=== PATIENT | male | born 1965 | race Caucasian/White ===

== ENCOUNTER 2017-10-29 13:42 | Emergency (ER) | payer MEDICARE ==
[~2017-10-29] VITALS: Ht 185.4 cm; Wt 90.7 kg
[2017-10-29 13:46] VITALS: Ht 185.4 cm; Wt 90.7 kg
[2017-10-29] MEDS ORDERED: PLAVIX75 MG PO (13:47)
[2017-10-29] MEDS ORDERED: OXYCONTIN15 MG PO (13:48)
[2017-10-29] MEDS ORDERED: fentanyl patch TD (13:50)
[2017-10-29] MEDS ORDERED: ZESTRIL20 MG PO (13:51)
[2017-10-29] MEDS ORDERED: DICLOFENAC SODI50 MG PO (13:51)
[2017-10-29] MEDS ORDERED: STERAPRED 5MG 125 MG PO (13:52)
[2017-10-29] MEDS ORDERED: FLOMAX0.4 MG PO (13:53)
[2017-10-29] MEDS ORDERED: LIPITOR10 MG PO (13:53)
[2017-10-29] MEDS ORDERED: VIBRAMYCIN 100100 MG PO (16:52)
[2017-10-29 17:13] VITALS: BP 114/71
== END 2017-10-29 17:13 | disposition home or self-care (01) ==
LOC: D.ER 13:42
DX: S61.012A Laceration without foreign body of left thumb without damage to nail, initial encounter (principal); W26.8XXA Contact with other sharp object(s), not elsewhere classified, initial encounter; Y93.89 Activity, other specified; Y92.019 Unspecified place in single-family (private) house as the place of occurrence of the external cause; S61.102A Unspecified open wound of left thumb with damage to nail, initial encounter; S62.522A Displaced fracture of distal phalanx of left thumb, initial encounter for closed fracture; Z86.73 Personal history of transient ischemic attack (TIA), and cerebral infarction without residual deficits; I10 Essential (primary) hypertension; F17.200 Nicotine dependence, unspecified, uncomplicated

== ENCOUNTER → 2018-12-08 11:11 | Outpatient (CLI) | payer MEDICARE ==
[~2018-12-08 11:11] MED LIST: DICLOFENAC SODI50 MG PO; FLOMAX0.4 MG PO; LIPITOR10 MG PO; OXYCONTIN15 MG PO; PLAVIX75 MG PO; STERAPRED 5MG 125 MG PO; VIBRAMYCIN 100100 MG PO; ZESTRIL20 MG PO; fentanyl patch TD
--- NOTE | 2018-12-16 14:07 | ST ---
PATIENT:MANPREET RENTERIA MEDICAL RECORD: [id number] SEX: M LOCATION:[facility] ORDER #: ADMISSION DATE: 12/08/18 AGE OF PATIENT: 53 REFERRING PHYSICIAN: INTERPRETING PHYSICIAN: LUCIANO THOMAS MD DATE OF SERVICE: 12/08/2018 PROCEDURE: Nuclear stress test. INDICATION: Angina, coronary artery disease, shortness of breath, hypertension and hyperlipidemia. He was exercised on standard Beto protocol for 10 minutes achieving 85% max target heart rate response with 33 mCi of sestamibi injected at peak stress, 11 mCi used previously for rest images. FINDINGS: Gated SPECT reveals preserved ejection fraction at 68% with decreased thickening and brightening throughout the inferior segments. SPECT imaging: Cardiolite was used as myocardial perfusion agent. There is a fixed perfusion defect inferiorly. This includes the basal, mid, apical, inferior segments. There is no evidence of reversibility. This may be artifactual from diaphragmatic attenuation. OVERALL IMPRESSION: This is a minimally abnormal nuclear stress test only showing fixed perfusion defect inferiorly, possibly artifactual. No evidence of reversible ischemia. Ejection fraction preserved greater than 63%. Continue medical management of the coronary artery disease and cardiac risk factors. TRANSINT:[id number] Voice Confirmation ID: [id number] DOCUMENT ID: [id number] LUCIANO THOMAS MD at 1407 CC: EBER URIBE [id number] DICTATION DATE: 12/09/18 1120 PHARMACEUTICAL ENGINEER: 12/10/18 0144 DEP CLI 12/08/18 [facility] [address] [place] [address]
== END | disposition home or self-care (01) ==
LOC: D.HCCARDIO 11:11
PROVIDERS: ATTEND Internal Medicine Interventional Cardiology
DX: I25.10 Atherosclerotic heart disease of native coronary artery without angina pectoris (principal)